=== PATIENT | male | born 1945 | race Caucasian/White ===

== ENCOUNTER 2016-12-07 12:50 | Emergency (ER) | payer OTHER ==
[2016-12-07 12:58] VITALS: TEMP 98.2
[2016-12-07] MEDS ORDERED: HYDROmorphONE/DILAUDID 1 MG/ML SYR IVP ONE (13:36)
[2016-12-07 13:37] LABS: COLOR YELLOW; LEUKOCYTE ESTERASE,URINE NEGATIVE (NEGATIVE); NITRITE,URINE NEGATIVE (NEGATIVE)
[2016-12-07 13:42] LABS: MUCUS TRACE /lpf (NONE-1+); RBC,URINE 50-182 /hpf (0-3)
[2016-12-07 13:43] LABS: BACTERIA NONE SEEN /hpf (NONE SEEN)
[2016-12-07 13:46] LABS: % IMMATURE GRANULYOCYTES 0.3 % (0.0-1.1); ABSOLUTE IMMATURE GRANULOCYTES 0.04 10^3/uL (0.00-0.10); ADD DIFF? NO; ADD MORPH? NO; ADD SCAN? NO; ATYPICAL LYMPHOCYTE FLAG 0 (0-99); FRAGMENT RBC FLAG 0 (0-99); HEMATOCRIT 44.3 % (40.0-51.0); HEMOGLOBIN 14.8 g/dL (13.7-17.5); LEFT SHIFT FLG 0 (0-99); LIPEMIA HEMOLYSIS FLAG 80 (0-99); MEAN CELL HEMOGLOBIN 29.7 pg (27.9-34.1); MEAN CELL HEMOGLOBIN CONCENTR. 33.4 g/dL (32.4-36.7); MEAN CELL VOLUME 88.8 fL (81.5-99.8); MEAN PLATELET VOLUME 8.8 fL (8.7-11.7); PLATELET CLUMPS FLAG 40 (0-99); PLATELET COUNT 350 10^3/uL (150-400); RED BLOOD CELL COUNT 4.99 10^6/uL (4.40-6.38); RED CELL DISTRIBUTION WIDTH 14.9 % (11.5-15.2)
[2016-12-07 14:01] LABS: ANION GAP 14 mEq/L (8-16); CALCIUM 9.6 mg/dL (8.5-10.4); CARBON DIOXIDE 22 mEq/l (22-31); CHLORIDE 110 mEq/L (97-110); GLOMERULAR FILTRATION RATE > 60; GLUCOSE 96 mg/dL (70-100); POTASSIUM 3.9 mEq/L (3.5-5.2); SODIUM 146 mEq/L (134-144)
[2016-12-07] MEDS ORDERED: KETOROLAC 15 MG/1 ML SDV IVP ONE (14:06)
[2016-12-07] MEDS ORDERED: NS 1,000 ML IV ONE (14:11)
--- NOTE | 2016-12-07 15:01 | CT ---
CT Abdomen and Pelvis Without Contrast (Stone Protocol) History: Left flank pain, possible kidney stone. Technique: Ultrathin ultrafast [address] through the abdomen and pelvis without contrast. Dose reduction techniques were utilized. Comparison: 08/17/2013 Findings: There is mild left caliectasis and hydropelvis associated with mild left hydroureter that i s dilated down to the ureterovesical junction where there is a 4.7 x 3.3 x 3 mm stone. There is chronic nonobstructive bilateral nephrolithiasis. No other stones are seen in the urinary b ladder. There is atherosclerotic calcification of a normal sized abdominal aorta. The liver, spleen, pancreas, adrenal glands and mesentery appears normal. There is diverticulosis of the redundant sigmo id colon without evidence of diverticulitis. The patient is obese. Impression: Distal left ureteral stone, likely to pass on its own. Results called to Keven Barcenas. Attention: This CT examination is specifically designed to evaluate patients who are clinically suspe cted of having acute obstructive uropathy. This examination does not use radiographic contrast, and as such, provides only a limited evaluation of the abdomen, pelvis and retroperitoneum. If there is further clinical suspicion for pathological conditions other than obstructive uropathy, a complete C T evaluation of the abdomen and pelvis utilizing intravenous, oral, and rectal contrast should be con sidered. General information for patients regarding this examination can be found at [email or web address]. If you have questions or comments about this report, please contact me at [phone] (hospital) or [phone] (cell).
[2016-12-07] MEDS ORDERED: TAMSULOSIN HCL 0.4 MG CAP PO ONE (15:07)
--- NOTE | 2016-12-07 15:07 | EDPHY ---
H & P Stated Complaint: l flank pain since 2199 last night Time Seen by Provider: 12/07/16 13:30 HPI/ROS: Chief complaint: Left flank pain, history of kidney stones History of present illness: This is a 71-year-old male who presents to the emergency department for evaluation of left flank pain. He has a history of recurrent stones. He states at least 20. He has only needed intervention to help a stone past 1 time. He reports the onset of pain last night. It radiates towards the abdomen. It is typical in nature for stones he has had in the past. No report of fevers, nausea, vomiting or diarrhea, no urinary symptoms. Review of systems: A 10 point review of systems was obtained and other than described above was negative - Personal History Current Tetanus/Diphtheria Vaccine: Yes Current Tetanus Diphtheria and Acellular Pertussis (TDAP): Yes Tetanus Vaccine Date: < 10 - Medical/Surgical History Hx Asthma: No Hx Chronic Respiratory Disease: No Hx Diabetes: No Hx Cardiac Disease: No Hx Renal Disease: No Hx Cirrhosis: No Hx Alcoholism: No Hx HIV/AIDS: No Hx Splenectomy or Spleen Trauma: No Other PMH: KIDNEY STONE (5MM), Hyperlipidemia - Social History Smoking Status: Never smoked - Physical Exam Exam: General Appearance: Alert, nontoxic. Eyes: Pupils equal and round no pallor or injection. ENT, Mouth: Mucous membranes moist. Respiratory: There are no retractions, lungs are clear to auscultation. Cardiovascular: Regular rate and rhythm. Gastrointestinal: Abdomen is soft and nontender, no masses, bowel sounds normal. Genitourinary: Mild left-sided CVA tenderness. Neurological: Alert and oriented. Strength and sensation intact and symmetrical. Skin: Warm and dry, no rashes. Musculoskeletal: Neck is supple nontender. Extremities are symmetrical, full range of motion. Psychiatric: Patient is oriented X 3, there is no agitation. Constitutional: Initial Vital Signs Temperature (C) 36.8 C 12/07/16 12:56 Heart Rate 83 12/07/16 12:56 Respiratory Rate 18 12/07/16 12:56 Blood Pressure 155/101 H 12/07/16 12:56 O2 Sat (%) 96 12/07/16 12:56 O2 Delivery Mode Room Air O2 (L/minute) 2 Allergies/Adverse Reactions: No Known Allergies Allergy (Verified 12/20/14 19:53) Home Medications: Medication Instructions Recorded Simvastatin 08/17/13 Valacyclovir HCl [Valtrex] 1,000 mg PO TID #21 tab 06/02/16 Tamsulosin HCl [Flomax 0.4 MG (*)] 0.4 mg PO DAILY 3 Days 12/07/16 Medical Decision Making - Diagnostics Imaging: Results: CT scan of the abdomen pelvis shows a distal left ureteral stone of approximately 4 mm ED Course/Re-evaluation: Patient seen under the supervision of my secondary supervising physician Dr. Maylin Ba. Patient presents to the emergency department for evaluation of left flank pain consistent with stones. CT scan confirmed a stone. Blood studies and urinalysis unremarkable for evidence of complications. Pain is well controlled. He has used Flomax in the past with good results. He is started on this. Patient is discharged home. He is asked to follow up with his primary care doctor through [facility]. Home care is discussed. He reports he has pain medicine at home for stones and does not want anymore. Return precautions are given. Patient voiced understanding and agreement with plan. Differential Diagnosis: Included but not limited to cystitis, pyelonephritis, nephrolithiasis - Data Points Laboratory Results: Laboratory Results 12/07/16 13:30 12/07/16 13:30 12/07/16 12/07/16 13:30 13:25 WBC 14.63 H 10^3/uL (3.80-9.50) RBC 4.99 10^6/uL (4.40-6.38) Hgb 14.8 g/dL (13.7-17.5) Hct 44.3 % (40.0-51.0) MCV 88.8 fL (81.5-99.8) MCH 29.7 pg (27.9-34.1) MCHC 33.4 g/dL (32.4-36.7) RDW 14.9 % (11.5-15.2) Plt Count 350 10^3/uL (150-400) MPV 8.8 fL (8.7-11.7) Neut % (Auto) 81.0 H % (39.3-74.2) Lymph % (Auto) 9.6 L % (15.0-45.0) [place] % (Auto) 8.1 % (4.5-13.0) Eos % (Auto) 0.5 L % (0.6-7.6) Baso % (Auto) 0.5 % (0.3-1.7) Nucleat RBC Rel Count 0.0 % (0.0-0.2) Absolute Neuts (auto) 11.86 H 10^3/uL (1.70-6.50) Absolute Lymphs (auto) 1.41 10^3/uL (1.00-3.00) Absolute Monos (auto) 1.18 H 10^3/uL (0.30-0.80) Absolute Eos (auto) 0.07 10^3/uL (0.03-0.40) Absolute Basos (auto) 0.07 10^3/uL (0.02-0.10) Absolute Nucleated RBC 0.00 10^3/uL (0-0.01) Immature Gran % 0.3 % (0.0-1.1) Immature Gran # 0.04 10^3/uL (0.00-0.10) Sodium 146 H mEq/L (134-144) Potassium 3.9 mEq/L (3.5-5.2) Chloride 110 mEq/L (97-110) Carbon Dioxide 22 mEq/l (22-31) Anion Gap 14 mEq/L (8-16) BUN 13 mg/dL (7-23) Creatinine 1.0 mg/dL (0.7-1.3) Estimated GFR > 60 Glucose 96 mg/dL (70-100) Calcium 9.6 mg/dL (8.5-10.4) Urine Color YELLOW Urine Appearance CLEAR Urine pH 6.0 (5.0-7.5) Ur Specific [place] 1.012 (1.002-1.030) Urine Protein NEGATIVE (NEGATIVE) Urine Ketones NEGATIVE (NEGATIVE) Urine Blood 3+ H (NEGATIVE) Urine Nitrate NEGATIVE (NEGATIVE) Urine Bilirubin NEGATIVE (NEGATIVE) Urine Urobilinogen NEGATIVE EU (0.2-1.0) Ur Leukocyte Esterase NEGATIVE (NEGATIVE) Urine RBC 50-182 H /hpf (0-3) Urine WBC 1-3 /hpf (0-3) Ur Epithelial Cells NONE SEEN /lpf (NONE-1+) Urine Bacteria NONE SEEN /hpf (NONE SEEN) Urine Mucus TRACE /lpf (NONE-1+) Ur Culture Indicated? NOT INDICATED (NI) Urine Glucose NEGATIVE (NEGATIVE) Medications Given: Discontinued Medications Hydromorphone HCl (Dilaudid) 1 mg IVP EDNOW ONE Stop: 12/07/16 13:37 Last Admin: 12/07/16 13:57 Dose: 1 mg Sodium Chloride (Ns) 1,000 mls @ 0 mls/hr IV ONCE ONE PRN Reason: Wide Open Stop: 12/07/16 14:12 Last Admin: 12/07/16 14:14 Dose: 1,000 mls Ketorolac Tromethamine (Toradol) 15 mg IVP EDNOW ONE Stop: 12/07/16 14:07 Last Admin: 12/07/16 14:20 Dose: 15 mg Tamsulosin HCl (Flomax) 0.4 mg PO EDNOW ONE Stop: 12/07/16 15:08 Last Admin: 12/07/16 15:14 Dose: 0.4 mg Departure - Departure Disposition: Home, Routine, Self-Care Clinical Impression: Kidney stone on left side Condition: Good Instructions: Kidney Stones (ED) Additional Instructions: Follow-up with her primary care doctor or urologist with [facility] next week for recheck Drink plenty of fluids to stay hydrated If symptoms worsen or new symptoms develop return to the emergency department for recheck Referrals: IN STATE,. [Primary Care Provider] - As per Instructions Prescriptions: Tamsulosin HCl [Flomax 0.4 MG (*)] 0.4 mg PO DAILY 3 Days
[2016-12-07 15:22] VITALS: BP 147/89; PULSE 78; RESP 16; O2SAT 98
== END 2016-12-07 15:22 | disposition home or self-care (01) ==
DX: N20.0 Calculus of kidney (principal)
CPT/HCPCS: 96374; J1170; J1885

== ENCOUNTER 2017-10-01 20:10 | Emergency (ER) | payer OTHER ==
[2017-10-01 20:22] VITALS: PULSE 78
--- NOTE | 2017-10-01 20:30 | EDPHY ---
HPI/HX/ROS/PE/MDM Narrative: CHIEF COMPLAINT: Right flank pain HISTORY OF PRESENT ILLNESS: The patient is a 72 y/o male with a history of kidney stones, complaining of right-sided flank pain for 1 hour. Accompanied by dry heaving. The pain today feels similar to prior kidney stones. The pain has not moved to his abdomen. No fever, chills, chest pain, shortness of breath, palpitations, vomiting, diarrhea, urinary complaints, headache, lightheadedness. REVIEW OF SYSTEMS: Aside from elements discussed in the HPI, a comprehensive 10-point review of systems was reviewed and is negative. 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 HEENT: Atraumatic. Eyes: No icterus, no injection. Mouth: Dry lips, slightly dry mucous membranes. No erythema or lesions. Neck: supple with no adenopathy. LUNGS: Clear to auscultation bilaterally, no wheezes, rhonchi or rales. CARDIAC: Regular rate and rhythm, no rubs, murmurs or gallops. Good femoral and dp/pt pulses, equal. ABDOMEN: Soft, nontender, nondistended, bowel sounds normal. BACK: Indicates the area of pain is in the right CVA. Minimal tenderness to palpation. EXTREMITIES: No trauma. No edema. Range of motion is normal throughout. NEURO: Alert and oriented, grossly nonfocal. SKIN: Warm and dry, no rash. PSYCHIATRIC: Normal mentation, no agitation. Portions of this note were transcribed by a biomedical electronics technician. I personally performed a history, physical exam, medical decision making, and confirmed accuracy of information the transcribed note. ED Course: The patient is a 72 y/o male with a history of kidney stones presenting with right-sided flank pain for [address] ordered. 30mg IV Toradol, 4mg IV Zofran and 1L IV NS administered. Patient's urinalysis has blood. CT scan demonstrates a 6 mm stone the upper ureter. On re-examination the patient reports that his pain has significantly improved. In fact, he states that is gone. He thinks that the stone may be in his bladder. He was discharged with instructions regarding straining his urine, who was given a prepack of hydrocodone to use if needed for recurrent pain, was discharged was Zofran. He was also instructed to use Flomax if his pain should recur, however, if he has no residual pain I do not believe he needs to be taking his Flomax. He will follow up with his urologist. He looks well. Of note the patient did have an significantly elevated lipase on his laboratory evaluation. He has really no epigastric discomfort. He did have some nausea and vomiting but certainly this could be related to his kidney stone. He will follow up with this result at [facility]. MDM: Differential diagnosis of the patient's flank pain was considered including but not limited to musculoskeletal causes, kidney stone, pyelonephritis, shingles, and intra-abdominal causes such as diverticulitis and appendicitis. - Data Points Laboratory Results: Laboratory Results 10/01/17 20:43 10/01/17 20:43 Medications Given: Discontinued Medications Hydromorphone HCl (Dilaudid) 1 mg IVP EDNOW ONE Stop: 10/01/17 21:29 Last Admin: 10/01/17 22:14 Dose: Not Given Sodium Chloride (Ns) 1,000 mls @ 0 mls/hr IV EDNOW ONE; Wide Open PRN Reason: Protocol Stop: 10/01/17 20:35 Last Admin: 10/01/17 20:50 Dose: 1,000 mls Ketorolac Tromethamine (Toradol) 30 mg IVP EDNOW ONE Stop: 10/01/17 20:35 Last Admin: 10/01/17 20:50 Dose: 30 mg Ondansetron HCl (Zofran) 4 mg IVP EDNOW ONE Stop: 10/01/17 20:35 Last Admin: 10/01/17 20:50 Dose: 4 mg Ondansetron HCl (Zofran Odt 4 Mg Prepack#2) 1 btl TAKEHOME EDNOW ONE Stop: 10/01/17 21:31 Last Admin: 10/01/17 22:11 Dose: 1 btl Oxycodone/Acetaminophen (Percocet 5/325mg Prepack#4) 1 btl TAKEHOME EDNOW ONE Stop: 10/01/17 21:31 Last Admin: 10/01/17 22:11 Dose: 1 btl Tamsulosin HCl (Flomax) 0.4 mg PO EDNOW ONE Stop: 10/01/17 21:29 Last Admin: 10/01/17 22:11 Dose: 0.4 mg General Time Seen by Provider: 10/01/17 20:25 Initial Vital Signs: Initial Vital Signs Temperature (C) 36.4 C 10/01/17 20:17 Heart Rate 78 10/01/17 20:17 Respiratory Rate 18 10/01/17 20:17 Blood Pressure 145/80 H 10/01/17 20:17 O2 Sat (%) 95 10/01/17 20:17 O2 Delivery Mode Room Air Allergies/Adverse Reactions: No Known Allergies Allergy (Verified 10/05/17 22:16) Home Medications: Medication Instructions Recorded Simvastatin 08/17/13 Lisinopril 10/01/17 Ondansetron Odt [Zofran Odt 4 mg 4 mg PO Q6 PRN #8 tab 10/01/17 (RX)] Tamsulosin HCl [Flomax 0.4 MG (*)] 0.4 mg PO DAILY #7 cap 10/01/17 oxyCODONE/APAP 5/325 [Percocet 1 tab PO QID PRN #14 tab 10/01/17 5/325 (*)] Departure - Departure Disposition: Home, Routine, Self-Care Clinical Impression: Kidney stone on right side Condition: Good Instructions: Kidney Stones (ED), How to Strain Your Urine (ED) Additional Instructions: Take Oxycodone as needed for severe pain. Use Zofran as needed for nausea. Take ibuprofen 600 mg every 6-8 hours as needed for moderate pain. This will also help with inflammation. Take Flomax if needed. Is important to take Flomax if you're experiencing pressure or pain as it will help dilate the ureter and allow this stone to pass. Followup with urology as directed. Strain urine. Return to the emergency department if you have worsening pain, fevers, persistent vomiting, or other concerns. Referrals: [facility] ,. [Edm Groups for Call Sched] - As per Instructions Cornell Gould MD [Medical Doctor] - As per Instructions Prescriptions: Ondansetron Odt [Zofran Odt 4 mg (RX)] 4 mg PO Q6 PRN #8 tab PRN Reason: Nausea oxyCODONE/APAP 5/325 [Percocet 5/325 (*)] 1 tab PO QID PRN #14 tab PRN Reason: Pain Tamsulosin HCl [Flomax 0.4 MG (*)] 0.4 mg PO DAILY #7 cap Report Scribed for: Marva Alcantara Report Scribed by: Sivan Lorenzo Date of Report: 10/01/17 Time of Report: 20:29
[2017-10-01] MEDS ORDERED: ONDANSETRON 4 MG/2 ML VIAL ONE (20:33)
[2017-10-01] MEDS ORDERED: KETOROLAC 30 MG/1 ML SDV IVP ONE (20:34)
[2017-10-01] MEDS ORDERED: ONDANSETRON 4 MG/2 ML VIAL IVP ONE (20:34)
[2017-10-01] MEDS ORDERED: NS 1,000 ML IV ONE (20:34)
[2017-10-01] MEDS ORDERED: KETOROLAC 30 MG/1 ML SDV ONE (20:36)
[2017-10-01 20:48] LABS: PLATELET COUNT 319 10^3/uL (150-400)
[2017-10-01] MEDS ORDERED: HYDROmorphONE/DILAUDID 1 MG/ML INJ IVP ONE (21:28)
[2017-10-01] MEDS ORDERED: TAMSULOSIN HCL 0.4 MG CAP PO ONE (21:28)
[2017-10-01] MEDS ORDERED: ONDANSETRON 4MG PREPACK#2 BTL TAKEHOME ONE (21:30)
[2017-10-01] MEDS ORDERED: OXYCODONE/APAP 5/325MG PREPACK#4 BTL TAKEHOME ONE (21:30)
[2017-10-01 22:24] VITALS: BP 133/66; RESP 82; TEMP 98.1; O2SAT 16
== END 2017-10-01 22:23 | disposition home or self-care (01) ==
DX: N20.0 Calculus of kidney (principal); E86.9 Volume depletion, unspecified
CPT/HCPCS: 96374; J1885; J2405

== ENCOUNTER 2017-10-05 22:00 | Emergency (ER) | payer OTHER ==
[2017-10-05 22:16] VITALS: TEMP 99; O2SAT 94
[2017-10-05] MEDS ORDERED: NS 1,000 ML IV ONE (22:36)
--- NOTE | 2017-10-05 22:36 | EDPHY ---
H & P Stated Complaint: seen for same last week, known kidney stone R side HPI/ROS: HPI CHIEF COMPLAINT: Right-sided flank pain. HISTORY OF PRESENT ILLNESS: This patient very pleasant 72-year-old male, he was recently here on Friday and diagnosed with a kidney stone on the right side 0.6 cm at the proximal right ureter. He went home. He did feel good for approximately 24 hr however on his pain started to increase again. He called his urologist he is a [facility] patient. The urologist told him to ride out and that he should pass the stone. However he continues to have ongoing right flank pain. He denies any fever chills. Denies vomiting. Denies lower abdominal pain. Denies chest pain or shortness of breath. The pain is rather severe right-sided the same or close to the same area where he had pain initially. He is very familiar with kidney stones he has had many. He has been taking his pain medicine and Flomax but without any significant relief. Patient is not interested in another imaging test her CT scan. He would like IV fluids and pain control. 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 Denies drugs alcohol tobacco. Family History: Noncontributory. ROS REVIEW OF SYSTEMS: A comprehensive 10 point review of systems is otherwise negative aside from elements mentioned in the history of present illness. Exam Constitutional triage nursing summary reviewed, vital signs reviewed, awake/ alert. Eyes normal conjunctivae and sclera, EOMI, PERRLA. HENT normal inspection, atraumatic, moist mucus membranes, no epistaxis, neck supple/ no meningismus, no raccoon eyes. Respiratory clear to auscultation bilaterally, normal breath sounds, no respiratory distress, no wheezing. Cardiovascular rate normal, regular rhythm, no murmur, no edema, distal pulses normal. Gastrointestinal soft, non-tender, no rebound, no guarding, normal bowel sounds, no distension, no pulsatile mass. Genitourinary mild tender palpation right CVA Musculoskeletal no midline vertebral tenderness, full range of motion, no calf swelling, no tenderness of extremities, no meningismus, good pulses, neurovascularly intact. Skin pink, warm, & dry, no rash, skin atraumatic. Neurologic awake, alert and oriented x 3, AAOx3, moves all 4 extremities equally, motor intact, sensory intact, CN II-XII intact, normal cerebellar, normal vision, normal speech. Psychiatric normal mood/affect. Heme/Lymph/Immune no lymphadenopathy. Differential Diagnosis: Includes but is not limited to in a particular order obstructing kidney stone, hydroureter, hydronephrosis, UTI, pyelonephritis, dehydration, electrolyte disturbance, acute need for pain control Medical Decision Making: Patient is declining any further imaging he would like IV establishment fluid bolus and pain medicine. Will check basic blood work urinalysis, will hydrate 1 L normal saline, IV Dilaudid for pain control, IV Zofran for nausea. Re-evaluation: 2325: I did re-evaluate this patient at this time. He still complaining of bad flank pain. I have ordered him another dose of Dilaudid. Additionally his urinalysis been reviewed there is some bacteria and some whites. Will send urine culture he will see 1 g of Rocephin. Given his ongoing back pain and flank pain I do recommend he stays in the hospital and additionally gets antibiotics for possible UTI. He declined any further imaging at this time. He is agreeable on being admitted. I will touch base with [facility] for admission. Reason for admission ongoing flank pain, UTI. 2333: Spoke with [facility], Patient requesting to stay here at [facility], prefers not to be transferred. Spoke with [facility], spoke with [facility] they would really like the patient go to [facility]. I updated the patient he is okay with this to go to [facility]. Will appropriately set up transfer to [facility]. 1210: This patient has been accepted at [facility] by Dr. Ruby. Patient is okay with transfer. Reason for transfer flank pain. Kidney stone. Possible UTI. Source: Patient - Personal History Tetanus Vaccine Date: < 10 - Medical/Surgical History Hx Asthma: No Hx Chronic Respiratory Disease: No Hx Diabetes: No Hx Cardiac Disease: Yes Hx Renal Disease: No Hx Cirrhosis: No Hx Alcoholism: No Hx HIV/AIDS: No Hx Splenectomy or Spleen Trauma: No Other PMH: KIDNEY STONE (5MM), Hyperlipidemia, hypertension - Social History Smoking Status: Never smoked Constitutional: Initial Vital Signs Temperature (C) 37.2 C 10/05/17 22:13 Heart Rate 88 10/05/17 22:13 Respiratory Rate 18 10/05/17 22:13 Blood Pressure 147/91 H 10/05/17 22:13 O2 Sat (%) 94 10/05/17 22:13 O2 Delivery Mode Nasal Cannula O2 (L/minute) 2 Allergies/Adverse Reactions: No Known Allergies Allergy (Verified 10/05/17 22:16) Home Medications: Medication Instructions Recorded Simvastatin 08/17/13 Lisinopril 10/01/17 Ondansetron Odt [Zofran Odt 4 mg 4 mg PO Q6 PRN #8 tab 10/01/17 (RX)] Tamsulosin HCl [Flomax 0.4 MG (*)] 0.4 mg PO DAILY #7 cap 10/01/17 oxyCODONE/APAP 5/325 [Percocet 1 tab PO QID PRN #14 tab 10/01/17 5325 (*)] Medical Decision Making - Data Points Laboratory Results: Laboratory Results 10/05/17 22:30 10/05/17 22:30 10/05/17 10/05/17 10/05/17 22:30 22:30 22:30 WBC 12.31 10^3/uL H 10^3/uL (3.80-9.50) RBC 4.17 10^6/uL L 10^6/uL (4.40-6.38) Hgb 12.4 g/dL L g/dL (13.7-17.5) Hct 37.0 % L % (40.0-51.0) MCV 88.7 fL fL (81.5-99.8) MCH 29.7 pg pg (27.9-34.1) MCHC 33.5 g/dL g/dL (32.4-36.7) RDW 14.9 % % (11.5-15.2) Plt Count 297 10^3/uL 10^3/uL (150-400) MPV 9.2 fL fL (8.7-11.7) Neut % (Auto) 74.7 % H % (39.3-74.2) Lymph % (Auto) 11.3 % L % (15.0-45.0) [place] % (Auto) 12.8 % % (4.5-13.0) Eos % (Auto) 0.6 % % (0.6-7.6) Baso % (Auto) 0.4 % % (0.3-1.7) Nucleat RBC Rel Count 0.0 % % (0.0-0.2) Absolute Neuts (auto) 9.19 10^3/uL H 10^3/uL (1.70-6.50) Absolute Lymphs (auto) 1.39 10^3/uL 10^3/uL (1.00-3.00) Absolute Monos (auto) 1.58 10^3/uL H 10^3/uL (0.30-0.80) Absolute Eos (auto) 0.07 10^3/uL 10^3/uL (0.03-0.40) Absolute Basos (auto) 0.05 10^3/uL 10^3/uL (0.02-0.10) Absolute Nucleated RBC 0.00 10^3/uL 10^3/uL (0-0.01) Immature Gran % 0.2 % % (0.0-1.1) Immature Gran # 0.03 10^3/uL 10^3/uL (0.00-0.10) Sodium 142 mEq/L mEq/L (134-144) Potassium 4.1 mEq/L mEq/L (3.5-5.2) Chloride 109 mEq/L mEq/L (97-110) Carbon Dioxide 21 mEq/l L mEq/l (22-31) Anion Gap 12 mEq/L mEq/L (8-16) BUN 23 mg/dL mg/dL (7-23) Creatinine 1.6 mg/dL H mg/dL (0.7-1.3) Estimated GFR 43 Glucose 125 mg/dL H mg/dL (70-100) Calcium 9.1 mg/dL mg/dL (8.5-10.4) Total Bilirubin 0.2 mg/dL mg/dL (0.1-1.4) Conjugated Bilirubin 0.1 mg/dL mg/dL (0.0-0.5) Unconjugated Bilirubin 0.1 mg/dL mg/dL (0.0-1.1) AST 17 IU/L IU/L (17-59) ALT 28 IU/L IU/L (21-72) Alkaline Phosphatase 80 IU/L IU/L (38-126) Total Protein 6.3 g/dL g/dL (6.3-8.2) Albumin 3.7 g/dL g/dL (3.5-5.0) Lipase 76 IU/L IU/L (23-300) Urine Color YELLOW Urine Appearance CLEAR Urine pH 5.0 (5.0-7.5) Ur Specific [place] 1.015 (1.002-1.030) Urine Protein NEGATIVE (NEGATIVE) Urine Ketones NEGATIVE (NEGATIVE) Urine Blood 2+ H (NEGATIVE) Urine Nitrate NEGATIVE (NEGATIVE) Urine Bilirubin NEGATIVE (NEGATIVE) Urine Urobilinogen NEGATIVE EU EU (0.2-1.0) Ur Leukocyte Esterase NEGATIVE (NEGATIVE) Urine RBC 15-25 /hpf H /hpf (0-3) Urine WBC 3-5 /hpf H /hpf (0-3) Ur Epithelial Cells NONE SEEN /lpf /lpf (NONE-1+) Urine Bacteria TRACE /hpf H /hpf (NONE SEEN) Hyaline Casts 1-5 /lpf /lpf (0-1) Urine Mucus TRACE /lpf /lpf (NONE-1+) Urine Glucose NEGATIVE (NEGATIVE) Medications Given: Discontinued Medications Hydromorphone HCl (Dilaudid) 1 mg IVP EDNOW ONE Stop: 10/05/17 22:42 Last Admin: 10/05/17 22:50 Dose: 1 mg Hydromorphone HCl (Dilaudid) 1 mg IVP EDNOW ONE Stop: 10/05/17 23:26 Last Admin: 10/05/17 23:30 Dose: 1 mg Sodium Chloride (Ns) 1,000 mls @ 0 mls/hr IV EDNOW ONE; Wide Open PRN Reason: Protocol Stop: 10/05/17 22:37 Last Admin: 10/05/17 22:47 Dose: 1,000 mls Ceftriaxone Sodium/Dextrose (Rocephin 1 Gm (Premix)) 50 mls @ 100 mls/hr IV EDNOW ONE PRN Reason: Protocol Stop: 10/05/17 23:52 Last Admin: 10/05/17 23:29 Dose: 50 mls Ondansetron HCl (Zofran) 4 mg IVP EDNOW ONE Stop: 10/05/17 22:42 Last Admin: 10/05/17 22:49 Dose: 4 mg Departure - Departure Disposition: Acute Care Hospital Not [facility] Clinical Impression: Flank pain, Kidney stone on right side UTI (urinary tract infection) Qualifiers: Urinary tract infection type: acute cystitis Hematuria presence: with hematuria Qualified Code(s): N30.01 - Acute cystitis with hematuria Condition: Fair Referrals: [facility] [Other] - As per Instructions
[2017-10-05 22:40] LABS: % IMMATURE GRANULYOCYTES 0.2 % (0.0-1.1); ABSOLUTE IMMATURE GRANULOCYTES 0.03 10^3/uL (0.00-0.10); ADD DIFF? NO; ADD MORPH? NO; ADD SCAN? NO; ATYPICAL LYMPHOCYTE FLAG 0 (0-99); FRAGMENT RBC FLAG 0 (0-99); HEMOGLOBIN 12.4 g/dL (13.7-17.5); LEFT SHIFT FLG 0 (0-99); LIPEMIA HEMOLYSIS FLAG 80 (0-99); MEAN CELL HEMOGLOBIN 29.7 pg (27.9-34.1); MEAN CELL HEMOGLOBIN CONCENTR. 33.5 g/dL (32.4-36.7); MEAN CELL VOLUME 88.7 fL (81.5-99.8); MEAN PLATELET VOLUME 9.2 fL (8.7-11.7); PLATELET CLUMPS FLAG 10 (0-99); PLATELET COUNT 297 10^3/uL (150-400); RED BLOOD CELL COUNT 4.17 10^6/uL (4.40-6.38); RED CELL DISTRIBUTION WIDTH 14.9 % (11.5-15.2)
[2017-10-05] MEDS ORDERED: HYDROmorphONE/DILAUDID 1 MG/ML INJ IVP ONE ×2 (22:41→23:25)
[2017-10-05] MEDS ORDERED: ONDANSETRON 4 MG/2 ML VIAL IVP ONE (22:41)
[2017-10-05 22:42] LABS: COLOR YELLOW; LEUKOCYTE ESTERASE,URINE NEGATIVE (NEGATIVE); NITRITE,URINE NEGATIVE (NEGATIVE)
[2017-10-05 22:50] LABS: ALANINE AMINOTRANSFERASE 28 IU/L (21-72); ALBUMIN 3.7 g/dL (3.5-5.0); ALKALINE PHOSPHATASE 80 IU/L (38-126); ANION GAP 12 mEq/L (8-16); ASPARTATE AMINOTRANSFERASE 17 IU/L (17-59); BACTERIA TRACE /hpf (NONE SEEN); BILIRUBIN,TOTAL 0.2 mg/dL (0.1-1.4); BILIRUBIN-CONJUGATED 0.1 mg/dL (0.0-0.5); BILIRUBIN-UNCONJUGATED 0.1 mg/dL (0.0-1.1); CALCIUM 9.1 mg/dL (8.5-10.4); CARBON DIOXIDE 21 mEq/l (22-31); CHLORIDE 109 mEq/L (97-110); CREATININE 1.6 mg/dL (0.7-1.3); GLOMERULAR FILTRATION RATE 43; GLUCOSE 125 mg/dL (70-100); MUCUS TRACE /lpf (NONE-1+); POTASSIUM 4.1 mEq/L (3.5-5.2); RBC,URINE 15-25 /hpf (0-3); SODIUM 142 mEq/L (134-144); TOTAL PROTEIN 6.3 g/dL (6.3-8.2)
[2017-10-05 23:33] VITALS: BP 143/69; RESP 16
[2017-10-05 23:35] VITALS: PULSE 84
== END 2017-10-06 00:45 | disposition short-term general hospital (02) ==
PROC: 3E0337Z Introduction of Electrolytic and Water Balance Substance into Peripheral Vein, Percutaneous Approach (ICD-10-PCS; principal; 2017-10-05)
DX: N20.0 Calculus of kidney (principal); N30.01 Acute cystitis with hematuria; B96.89 Other specified bacterial agents as the cause of diseases classified elsewhere; E86.9 Volume depletion, unspecified; I10 Essential (primary) hypertension
CPT/HCPCS: 96374; J0696; J1170; J2405